=== PATIENT | male | born 1975 | race Caucasian/White ===

== ENCOUNTER → 2016-11-21 | Outpatient (CLI) | payer MEDICAID ==
--- NOTE | 2016-11-21 11:39 | RADIOLOGY REPORT PS360 ---
US ABD(COMPLETE-MULTI ORGANS HISTORY: POSITIVE HCV ORDERING PHYSICIAN: KTAE TORRES APRN PATIENT AGE: 41 years COMPARISON: None FINDINGS: PANCREAS:Unremarkable. No obvious mass or abnormal fluid collection. No ductal dilatation LIVER:No focal liver lesions demonstrated. Homogeneous echogenicity. No intrahepatic biliary ductal dilatation evident. Hepatopedal flow present within the portal vein. Portal vein is upper normal at 13 mm RIGHT KIDNEY:Unremarkable. Normal size and echogenicity. No hydronephrosis LEFT KIDNEY:Unremarkable. No hydronephrosis. Normal size and echogenicity. GALLBLADDER:No gallstones, gallbladder wall thickening, pericholecystic fluid, or biliary dilatation. There is increased echogenicity in the gallbladder fossa which may be related to prominent periportal fat and could be confirmed with CT. Common bile duct is normal at 4 mm AORTA:No evidence of aneurysmal dilatation. SPLEEN:Unremarkable. Normal size and echogenicity ASCITES:None demonstrated. IMPRESSION: 1. Unremarkable appearing liver. 2. Hepatopedal flow within the portal vein with portal vein upper limits of normal in size. 3. Increased echogenicity within the gallbladder fossa possibly related to periportal fat and could be confirmed with CT if clinically warranted. No gallstones or biliary dilatation
== END ==
LOC: RAD 08:00
DX: R76.8 Other specified abnormal immunological findings in serum (principal)

== ENCOUNTER 2017-03-13 14:08 | Emergency (ER) | payer MEDICAID ==
[~2017-03-13] VITALS: Ht 185.4 cm; Wt 78.5 kg
[2017-03-13] MEDS ORDERED: PANTOPRAZOLE SO40 M1 PO (14:16)
[2017-03-13] MEDS ORDERED: MONTELUKAST SOD10 MG PO (14:16)
[2017-03-13] MEDS ORDERED: FLONASE 50 MCG16 GM (14:16)
[2017-03-13] MEDS ORDERED: KEFLEX 500MG.500 MG PO (14:17)
--- OUTSIDE RECORDS SUMMARY | 2017-03-13 14:30 | External Medical Summary Rpt ---
Author Author , Organization [employer] Address Unknown Phone Unavailable Care Team Providers Care Golf Teacher Name Role Phone [facility], Unavailable Unavailable [facility], Unavailable Unavailable [facility] SEGURA, SEGURA Unavailable Unavailable WADE CRUZITO, Unavailable Unavailable WADE CRUZITO CIARA CHR, Unavailable Unavailable CIARA CHR FRYMAN, FRYMAN Unavailable Unavailable FRYMAN EUG, FRYMAN Unavailable Unavailable EUG HELENA ATUL, HELENA Unavailable Unavailable ATUL ROB ASPEN, ROB Unavailable Unavailable ASP[facility] Un[facility] Un[facility], [facility], Unavailable Unavailable [facility] BRIGITTE MARCIO, BRIGITTE MARCIO Unavailable Unavailable [facility] Un[facility] RICHARD LUZ, RICHARD LUZ Unavailable Unavailable [facility] NURSE Unavailable Unavailable PRACTITIONER GR, [facility] NURSE PRACTITIONER GR PATO-NATALIIA, Unavailable Unavailable [facility] Un[facility], [facility] FAUST, FAUST Unavailable Unavailable NAYA JAM, NAYA JAM Unavailable Unavailable KEN LUZ, KEN Unavailable Unavailable LUZ KEN LUZ, KEN Unavailable Unavailable LUZ LUKINS CRUZITO, LUKINS Unavailable Unavailable CRUZITO PRAVEENA GRISSOM Unavailable Unavailable PRAVEENA GRISSOM Unavailable Unavailable DOUG BARDOUG Unavailable Unavailable BAR RICE YVO, RICE YVO Unavailable Unavailable [facility] Purpose Continuity of Care Document - 06-03-2014 through 2016 Problems Code Diagnosis DOS Provider Status J309 ALLERGIC 01-21-2017 [facility] RHINITIS PHYSICIANS UNSPECIFIED GROUP J320 CHRONIC 01-21-2017 [facility] MAXILLARY PHYSICIANS SINUSITIS GROUP J342 DEVIATED 01-21-2017 [facility] NASAL PHYSICIANS SEPTUM GROUP L0291 CUTANEOUS 01-09-2017 [facility] ABSCESS PHYSICIANS UNSPECIFIED GROUP R51 HEADACHE 01-09-2017 [facility] B1920 UNS VIRAL 11-21-2016 [facility] HEPATITIS C MEDICAL WITHOUT IMAGING ASS HEPATIC COMA R768 OTH SPEC 11-21-2016 [facility] IMMUNOLOGIC INC AL FIND IN SERUM H5213 MYOPIA 08-09-2016 [facility] BILATERAL M549 DORSALGIA 05-01-2016 [facility] UNSPECIFIED PHYSICIANS GROUP R946 ABNORMAL 05-01-2016 [facility] RESULTS OF PHYSICIANS THYROID GROUP FUNCTION STUDIES M542 CERVICALGIA 04-03-2016 [facility] M545 LOW BACK 04-03-2016 [facility] PAIN [facility] M95919 MIGRAINE 04-02-2016 [facility] UNS NOT PHYSICIANS INTRACT W/O GROUP STATUS MIGRAINOSUS J3489 OTHER 03-20-2016 [facility] SPECIFIED MEDICAL DISORDERS IMAGING ASS NOSE AND NASAL SINUSES K219 GASTRO-ESOP 03-20-2016 [facility] H REFLUX PHYSICIANS DISEASE GROUP WITHOUT ESOPHAGITIS S40171 PAIN IN 03-20-2016 [facility] LEFT HIP MEDICAL IMAGING ASS Z0000 ENCOUNTER 03-20-2016 [facility]ULT [facility] MED EXAM INC W/O ABNORMAL FIND G8929 OTHER 11-02-2015 [facility] CHRONIC PAIN K30 FUNCTIONAL 11-02-2015 [facility] DYSPEPSIA 41670 CHEST PAIN 07-28-2014 KEN LU[facility] UNSPECIFIED 46311 OTHER 07-06-2014 [facility] SYMPTOMS SERV INVOLVING FOUNDATION HEAD AND NECK 7937 NONSPC ABN 07-06-2014 [facility] FINDNG RAD SERV & OTH EXM FOUNDATION MUSCULSKELT L SYS E8810 ACCIDENTAL 07-06-2014 [facility] FALL FROM SERV LADDER FOUNDATION 14942 CLOSED 06-14-2014 K[facility] LU[facility] FRACTURE OF RIB, UNSPECIFIED E8849 OTHER 06-14-2014 [facility] LU[facility] ACCIDENTAL FALL FROM ONE LEVEL TO ANOTHER 58857 LIVER LAC 06-07-2014 [facility] NURSE MINOR W/O PRACTITIONE MENTION OPN R GR WOUND IN CAV 06026 UNS SPLEEN 06-07-2014 [facility] NURSE INJURY W/O PRACTITIONE MENTION OPN R GR WOUND IN CAV 4928 OTHER 06-04-2014 [facility] EMPHYSEMA SERV FOUNDATION 55770 KYPHOSIS 06-04-2014 [facility] ACQUIRED SERV POSTURAL FOUNDATION 7384 ACQUIRED 06-04-2014 [facility] SPONDYLOLIS SERV THESIS FOUNDATION 38603 CLOSED 06-04-2014 [facility] FRACTURE OF SERV ONE RIB FOUNDATION E8889 UNSPECIFIED 06-04-2014 [facility] FALL SERV FOUNDATION V454 ARTHRODESIS 06-04-2014 [facility] STATUS SERV [facility]OUNDATION V714 OBSERVATION 06-04-2014 [facility] FOLLOWING SERV OTHER FOUNDATION ACCIDENT 7245 UNSPECIFIED 06-03-2014 [facility] BACKACHE [place] 75468 ABDOMINAL 06-03-2014 [facility] PAIN, LEFT [place] UPPER QUADRANT 8770 OPEN WOUND 06-03-2014 [facility] BUTTOCK SERV WITHOUT FOUNDATION MENTION COMPLICATIO N 9228 CONTUSION 06-03-2014 [facility] SITES OF INC TRUNK 49127 OTHER 06-03-2014 [facility] INJURY OF N EMERGENCY OTHER SITES PHYS OF TRUNK E882 ACCIDENTAL 06-03-2014 [place] [facility] F[facility] SERV FROM/OUT FOUNDATION BUILDING/OT H STRUCTURE E8888 OTHER FALL 06-03-2014 [facility] T07 UNSPECIFIED MULTIPLE INJURIES Medications Na ND Rx Da Fi Fi Am Da Di Ph RX Ph St me C No te ll ll ou ys ag ar # ys at rm s nt no ma ic us Or Da si cy ia de te s n re d MO 27 05 06 30 30 00 CA Ac NT 24 -1 -0 .0 00 RL ti EL 10 5- 9- 00 00 IS ve UK 01 20 20 77 LE 89 17 [address] DON DOWLING D S 10 MG TA BL ET FL 00 05 06 16 30 00 CA Ac UT 05 -1 -0 .0 00 RL ti IC 43 5- 9- 00 00 IS ve 27 20 20 77 LE ON 09 17 [address] EMILIE DOWLING OP S 50 MC G SP RA Y THRASHER 53 05 05 20 10 00 CA Ac LF 74 -0 -2 .0 00 RL ti AM 60 3- 6- 00 00 IS ve ET 27 20 20 77 LE HO 20 17 [address] SAWYER DOWLING LE S -T MP DS TA BL ET CE 00 05 05 20 10 00 CA Ac PH 09 -0 -2 .0 00 RL ti AL 33 3- 6- 00 00 IS ve EX 14 20 20 77 LE IN 70 17 [address] 50 UG 0 S MG CA PS UL E PA 00 05 05 30 30 00 CA Ac NT 37 -0 -2 .0 00 RL ti OP 86 3- 6- 00 00 IS ve RA 68 20 20 77 LE ZO 97 17 [address] NITESH Blank D 40 MG TA B Procedures Procedure DOS Code Location Performer Comment SUSCEPTIB 54394 [facility] LTY STDY 7 [facility] ANTIMICRB INC INC IAL MICRO/AGA R DILUTJ INCISION 59107 [facility] FRYMAN & 7 PHYSICIAN DRAINAGE S GROUP ABSCESS SIMPLE/SI NGLE CUL BACT 39633 [facility] XCPT 7 [facility] URINE INC INC BLOOD/STO OL AEROBIC ISOL CUL BACT 96599 [facility] MANUEL FRY AEROBIC 7 [facility] [place]DL [place] [address] [facility] MANUEL FRY ABDOMINAL 7 [facility] REAL INC INC TIME W/[place] [address] LUZ SEGURA ABDOMINAL 7 MEDICAL REAL IMAGING TIME ASS W/IMAGE LIMITED DETERMINA 72597 PRAVEENA GRISSOM [facility] 6 REFRACTIV E STATE OPHTH 97501 PRAVEENA [facility] 6 XM&EVAL COMPRE NEW PT 1/> VST PHYSICAL 36825 [facility] FR[facility] THERAPY 6 [facility] EVALUATIO INC INC N DRUG TST G0477 [facility] FR[facility] PRESUMP;C 6 [facility] PBL BEING INC INC READ DC OPT OBV ONLY COMPREHEN 13350 [facility] FR[facility] SIVE 6 [facility] METABOLIC INC INC PANEL HEPATITIS 58147 [facility] Lam CORE 6 [facility] ANTIBODY INC INC HBCAB TOTAL HEPATITIS 59947 [facility] Lam SURF 6 [facility] [address] [facility] FRY HEPATITIS 6 [facility] B INC INC SURFACE ANTIGEN LIPID 48875 [facility] FR[facility] PANEL 6 [facility] INC INC HEPATITIS 44582 [facility] FRY C 6 [facility] ANTIBODY INC INC RADEX 48666 [facility] SINUSES 6 MEDICAL CRUZITO PARANASAL IMAGING COMPL ASS MINIMUM 3 VIEWS HEMOGLOBI 34035 [facility] FRY N 6 [facility] GLYCOSYLA INC INC ARTURO A1C BLOOD 21286 [facility] FR[facility] COUNT 6 [facility] COMPLETE INC INC AUTO&AUTO DIFRNTL WBC RADEX HIP 45276 [facility] WADE 6 MEDICAL CRUZITO UNILATERA IMAGING L WITH ASS PELVIS 2-3 VIEWS HEPATITIS 44181 [facility] FRY A 6 [facility] ANTIBODY INC INC HAAB COLLECTIO 50372 [facility] FR[facility] N VENOUS 6 [facility] H[facility] [place] [address] [facility] FR[facility] THYROID 6 [facility] STIMULATI [place] [address] [facility] FRY THYROXINE 6 [facility] TOTAL INC INC HOSPITAL 96845 [facility] RICE YVO DISCHARGE 4 NURSE DAY PRACTITIO MANAGEMEN NER GR T 30 MIN/< SBSQ 97104 [facility] 4 MEDICAL ASPEN CARE/DAY SERV 15 FOUNDATIO MINUTES N SBSQ 25099 [facility] 4 MEDICAL ASPEN CARE/[place] [address] [place] [address] MEGHNA LUKINS ANGIOGRAP 4 MEDICAL CRUZITO HY NECK SERV W/CONTRAS FOUNDAT[place] T/[place] [address] [place] ANGIOGRAP 4 MEDICAL BAR HY CHEST SERV W/CONTRAS FOUNDAT[place] T/[place] [address] [place] CERVICAL 4 MEDICAL BAR SPINE W/[place] [address] [place] ABDOMEN & 4 MEDICAL BAR PELVIS SERV [place] [address] [place] ANGIOGRAP 4 MEDICAL CRUZITO HY HEAD SERV W/CONTRAS FOUNDATIO T/NONCONT N [facility] [place] LUMBAR 14857 [place] SPINE 4 MEDICAL BAR W/O SERV CONTRAST FOUNDATIO MATERIAL N RADIOLOGI 14634 [place] NAYA JAM C 4 MEDICAL EXAMINATI SERV ON PELVIS FOUNDATIO 1/2 N VIEWS RADIOLOGI 72968 [place] NAYA JAM C 4 MEDICAL EXAMINATI SERV ON CHEST FOUNDATIO SINGLE N VIEW FRONTAL RADEX 84984 [place] RICHARD LUZ SPINE 4 MEDICAL CERVICAL SERV 2 [address] [place] [address] [place] [facility] THORACIC 4 MEDICAL BAR SPINE W/O SERV CONTRAST FOUNDATIO MATERIAL N US CHEST 50859 [place] BRIGGS MARCIO REAL TIME 4 MEDICAL W/IMAGE SERV DOCUMENTA FOUNDATIO TION N THROMBOPL 36006 [facility] FRY ASTIN 4 [facility] TIME INC INC PARTIAL PLASMA/WH OLE BLOOD CRITICAL 56618 [facility] 4 EDER ATUL ILL/INJUR EMERGENCY ED PHYS PATIENT INIT 30-74 MIN RADIOLOGI 65522 [facility] FRY C 4 [facility] EXAMINATI INC INC ON CHEST SINGLE VIEW FRONTAL GLUC BLD 23115 [facility] GARYON GLUC MNTR 4 [facility] DEV INC INC CLEARED FDA SPEC HOME USE BLOOD 88368 [facility] FRY COUNT 4 [facility] COMPLETE INC INC AUTO&AUTO DIFRNTL WBC COMPREHEN 20836 [facility] SIVE 4 [facility] [place] [address] [place] MARC[place] ABDOMINAL 4 MEDICAL REAL SERV TIME FOUNDATIO W/IMAGE N LIMITED AMB A0431 [facility] AIR SERVICE 4 METHODS METHODS CONVNTION [facility] AIR SRVC TRANSPORT [address] ECHO 55822 [place] BRIGGS MARC[place] TRANSTHOR 4 MEDICAL C R-T 2D SERV W/WO FOUNDATIO M-MODE N REC F-UP/LMTD THERAPEUT 72340 [facility] FR[facility] IC 4 [facility] INJECTION INC INC IV PUSH EACH NEW DRUG THER 74026 [facility] FRY PROPH/DX 4 [facility] NJX IV INC INC PUSH SINGLE/1S T SBST/DRUG Encounters Encounter Start End Date Code Location Performer Type Date OFFICE 93857 [facility] OUTPATIEN 7 7 PHYSICIAN T NEW 20 S GROUP MINUTES [facility] 7 [facility] OUTPATIEN INC T OFFICE 65846 [facility] OUTPATIEN 7 7 PHYSICIAN T VISIT S GROUP 15 MINUTES [facility]OSPITAL [facility] - 7 7 [facility] OUTPATIEN INC T OFFICE 24997 [facility] XAVI OUTPATIEN 7 7 NURSE NS T VISIT PRACTITIO 15 NER GR MINUTES OFFICE 09146 [facility] HELENA OUTPATIEN 6 6 PHYSICIAN ATUL T VISIT S GROUP 15 MINUTES [facility]OSPITAL [facility] - 6 6 [facility] OUTPATIEN INC T OFFICE 03987 [facility] FRYMAN OUTPATIEN 6 6 PHYSICIAN EUG T VISIT S GROUP 15 MINUTES HOSPITAL [facility] - 6 6 [facility] OUTPATIEN INC T OFFICE 04707 [facility] HELENA OUTPATIEN 6 6 PHYSICIAN ATUL T NEW 20 S GROUP MINUTES OFFICE 93309 [facility] KEN OUTPATIEN 6 6 LUZ LUZ T VISIT 25 MINUTES OFFICE 00175 K[facility] KEN OUTPATIEN 4 4 LUZ LUZ T VISIT 15 MINUTES OFFICE 54311 [facility] URBINA OUTPATIEN 4 4 MEDICAL CHR T NEW 20 SERV MINUTES FOUNDATIO N OFFICE 15941 K[facility] KEN OUTPATIEN 4 4 LUZ LUZ T NEW 45 MINUTES HOSPITAL [facility] - 4 4 [facility] OUTPATIEN INC T EMERGENCY 43219 [facility] BRIGGS MARCIO DEPT 4 4 MEDICAL VISIT SERV HIGH FOUNDATIO SEVERITY& N THREAT FUNJ
--- OUTSIDE RECORDS SUMMARY | 2017-03-13 14:30 | External Medical Summary Rpt ---
Author Author , Organization [employer] Address Unknown Phone Unavailable Care Team Providers Care Account Manager Trainee Name Role Phone [facility], Unavailable [...] Unavailable Unavailable INC, [facility], Unavailable Unavailable [facility] BRIGITTE MARCIO, BRIGITTE MARCIO Unavailable [...] Diagnosis DOS Provider Status J309 ALLERGIC 01-21-2017 [facility] RHINITIS PHYSICIANS UNSPECIFIED GROUP J320 CHRONIC 01-21-2017 [facility] MAXILLARY PHYSICIANS SINUSITIS GROUP J342 DEVIATED 01-21-2017 [facility] NASAL PHYSICIANS SEPTUM GROUP L0291 CUTANEOUS 01-09-2017 [facility] ABSCESS PHYSICIANS UNSPECIFIED GROUP R51 HEADACHE 01-09-2017 [facility] PHYSICIANS GROUP B1920 UNS VIRAL 11-21-2016 [facility] HEPATITIS C MEDICAL WITHOUT IMAGING ASS HEPATIC COMA R768 OTH SPEC 11-21-2016 [facility] ABNORMAL [facility] IMMUNOLOGIC INC AL FIND IN SERUM H5213 MYOPIA 08-09-2016 [facility] BILATERAL M549 DORSALGIA 05-01-2016 [facility] UNSPECIFIED PHYSICIANS GROUP R946 ABNORMAL 05-01-2016 [facility] RESULTS OF PHYSICIANS THYROID GROUP FUNCTION STUDIES M542 CERVICALGIA 04-03-2016 [facility] M545 LOW BACK 04-03-2016 [facility] PAIN [facility] INC J61814 MIGRAINE 04-02-2016 [facility] UNS NOT PHYSICIANS INTRACT W/O GROUP STATUS MIGRAINOSUS J3489 OTHER 03-20-2016 [facility] SPECIFIED MEDICAL DISORDERS IMAGING ASS NOSE AND NASAL SINUSES K219 GASTRO-ESOP 03-20-2016 [facility] H REFLUX PHYSICIANS DISEASE GROUP WITHOUT ESOPHAGITIS I97028 PAIN IN 03-20-2016 [facility] LEFT HIP MEDICAL IMAGING ASS Z0000 ENCOUNTER 03-20-2016 [facility] GEN ADULT [facility] MED EXAM INC W/O ABNORMAL FIND G8929 OTHER 11-02-2015 [facility] CHRONIC PAIN K30 FUNCTIONAL 11-02-2015 [facility] DYSPEPSIA 99296 CHEST PAIN 07-28-2014 KEN LU[facility] UNSPECIFIED 43566 OTHER 07-06-2014 [place] [facility] SYMPTOMS SERV INVOLVING FOUNDATION HEAD AND NECK 7937 NONSPC ABN 07-06-2014 [facility] FINDNG RAD SERV & OTH EXM FOUNDATION MUSCULSKELT L SYS E8810 ACCIDENTAL 07-06-2014 [facility] FALL FROM SERV LADDER FOUNDATION 72787 CLOSED 06-14-2014 [facility] LU[facility] FRACTURE OF RIB, UNSPECIFIED E8849 OTHER 06-14-2014 KEN LUZ ACCIDENTAL FALL FROM ONE LEVEL TO ANOTHER 03115 LIVER LAC 06-07-2014 [facility] NURSE MINOR W/O PRACTITIONE MENTION OPN R GR WOUND IN CAV 03209 UNS SPLEEN 06-07-2014 [facility] NURSE INJURY W/O PRACTITIONE MENTION OPN R GR WOUND IN CAV 4928 OTHER 06-04-2014 [facility] EMPHYSEMA SERV FOUNDATION 34866 KYPHOSIS 06-04-2014 [facility] ACQUIRED SERV POSTURAL [facility]OUNDATION 7384 ACQUIRED 06-04-2014 [facility] SPONDYLOLIS SERV THESIS FOUNDATION 70452 CLOSED 06-04-2014 [facility] FRACTURE OF SERV ONE RIB FOUNDATION E8889 UNSPECIFIED 06-04-2014 [facility] FALL SERV FOUNDATION V454 ARTHRODESIS 06-04-2014 [facility] STATUS [facility] V714 OBSERVATION 06-04-2014 [facility] FOLLOWING SERV OTHER FOUNDATION ACCIDENT 7245 UNSPECIFIED 06-03-2014 [facility] BACKACHE [place] 42352 ABDOMINAL 06-03-2014 [facility] PAIN, LEFT [place] UPPER QUADRANT 8770 OPEN WOUND 06-03-2014 [facility] BUTTOCK SERV WITHOUT FOUNDATION MENTION COMPLICATIO N 9228 CONTUSION 06-03-2014 [facility] SITES OF INC TRUNK 74854 OTHER 06-03-2014 [facility] N EMERGENCY [...] Procedure DOS Code Location Performer Comment SUSCEPTIB 94517 [facility] FRY LTY STDY 7 [facility] ANTIMICRB INC INC IAL MICRO/AGA R DILUTJ INCISION 26259 [facility] FRYMAN & 7 PHYSICIAN DRAINAGE S GROUP ABSCESS SIMPLE/SI NGLE CUL BACT 95559 [facility] FR[facility] XCPT 7 [facility] URINE INC INC BLOOD/STO OL AEROBIC ISOL CUL BACT 65604 [facility]AJOSE MANUEL FRY AEROBIC 7 [facility] ADDL [place] [address] L[facility]ANDRAJOSE MANUEL FRY ABDOMINAL 7 [facility] REAL INC [place] TIME [place] [address] LUZ SEGURA ABDOMINAL 7 MEDICAL REAL IMAGING TIME ASS W/IMAGE LIMITED DETERMINA 01455 PR[facility]EENA GRISSOM [facility] 6 REFRACTIV E STATE OPHTH 38114 PRAV[facility]NA [facility] 6 XM&EVAL COMPRE NEW PT 1/> VST PHYSICAL 27888 [facility] FRY THERAPY 6 [facility] EVALUATIO INC INC N DRUG TST G0477 [facility] FRY PRESUMP;C 6 [facility] PBL BEING INC INC READ DC OPT OBV ONLY COMPREHEN 54530 [facility] FRY SIVE 6 [facility] METABOLIC INC INC PANEL HEPATITIS 07396 [facility] Lam CORE 6 [facility] ANTIBODY INC INC HBCAB TOTAL HEPATITIS 16100 [facility] Lam SURF 6 [facility] [address] [facility] FRY HEPATITIS 6 [facility] B INC INC SURFACE ANTIGEN LIPID 18413 [facility] FRY PANEL 6 [facility] INC INC HEPATITIS 75648 [facility] FRY C 6 [facility] ANTIBODY INC INC RADEX 34793 [facility] WADE SINUSES 6 MEDICAL CRUZITO PARANASAL IMAGING COMPL ASS MINIMUM 3 VIEWS HEMOGLOBI 42759 [facility] FRY N 6 [facility] GLYCOSYLA INC INC ARTURO A1C BLOOD 69294 [facility] FRY COUNT 6 [facility] COMPLETE INC INC AUTO&AUTO DIFRNTL WBC RADEX HIP 47183 [facility] WADE 6 MEDICAL CRUZITO UNILATERA IMAGING L WITH ASS PELVIS 2-3 VIEWS HEPATITIS 97326 [facility] FRY A 6 [facility] ANTIBODY INC INC HAAB COLLECTIO 34767 [facility] FRY N VENOUS 6 [facility] [place] [address] [facility] FRY THYROID 6 [facility] STIMULATI [place] [address] [facility] FRY THYROXINE 6 [facility] H[facility] TOTAL INC INC HOSPITAL 23655 KMSF RICE YVO DISCHARGE 4 NURSE DAY PRACTITIO MANAGEMEN NER GR T 30 MIN/< SBSQ 15898 [facility] 4 MEDICAL ASPEN CARE/DAY SERV 15 FOUNDATIO MINUTES N SBSQ 70265 [facility] 4 MEDICAL ASPEN CARE/DAY SERV [address] [place] [address] MEGHNA LUKINS ANGIOGRAP 4 MEDICAL CRUZITO HY NECK SERV W/CONTRAS FOUNDAT[place] T/[place] [address] [place] ANGIOGRAP 4 MEDICAL BAR HY CHEST SERV W/CONTRAS [place] [address] [place] CERVICAL 4 MEDICAL BAR SPINE W/[place] [address] [place] ABDOMEN & 4 MEDICAL BAR PELVIS SERV W/[place] [address] [place] ANGIOGRAP 4 MEDICAL CRUZITO HY HEAD SERV W/CONTRAS FOUNDATIO T/NONCONT N [facility]ST CT LUMBAR 51999 [place] SPINE 4 MEDICAL BAR W/O SERV CONTRAST FOUNDATIO MATERIAL N RADIOLOGI 74074 [place] [facility] JAM C 4 MEDICAL EXAMINATI SERV ON PELVIS FOUNDATIO 1/2 N VIEWS RADIOLOGI 02547 [place] [facility] JAM C 4 MEDICAL EXAMINATI SERV ON CHEST FOUNDATIO SINGLE N VIEW FRONTAL RADEX 31644 [place] R[place]ARD LUZ SPINE 4 MEDICAL CERVICAL SERV 2 [place] [address] [place] [facility] THORACIC 4 MEDICAL BAR SPINE W/O SERV CONTRAST FOUNDATIO MATERIAL N US CHEST 40491 [place] BRIGGS MARCIO REAL TIME 4 MEDICAL W/IMAGE SERV DOCUMENTA FOUNDATIO TION N THROMBOPL 20818 [facility] FRY ASTIN 4 [facility] TIME INC INC PARTIAL PLASMA/WH OLE BLOOD CRITICAL 80861 [facility] 4 EDER ATUL ILL/INJUR EMERGENCY ED PHYS PATIENT INIT 30-74 MIN RADIOLOGI 06687 [facility] FRY C 4 [facility] EXAMINATI INC INC ON CHEST SINGLE VIEW FRONTAL GLUC BLD 16087 L[facility] GARYON GLUC MNTR 4 [facility] DEV INC INC CLEARED FDA SPEC HOME USE BLOOD 98281 [facility] FRY COUNT 4 [facility] COMPLETE INC INC AUTO&AUTO DIFRNTL WBC COMPREHEN 51630 [facility] SIVE 4 [facility] [place] [address] [place] MARC[place] ABDOMINAL 4 MEDICAL REAL SERV TIME FOUNDATIO W/IMAGE N LIMITED AMB A0431 AIR AIR SERVICE 4 METHODS METHODS CONVNTION [facility] AIR SRVC TRANSPORT [address] ECHO 00839 [place] [facility] MARC[place] TRANSTHOR 4 MEDICAL C R-T 2D SERV W/WO FOUNDATIO M-MODE N REC F-UP/LMTD THERAPEUT 41893 [facility] FRY IC 4 [facility] INJECTION INC INC IV PUSH EACH NEW DRUG THER 61409 [facility] FRY PROPH/DX 4 [facility] NJX IV INC INC PUSH SINGLE/1S T SBST/DRUG Encounters Encounter Start End Date Code Location Performer Type Date OFFICE 40803 [facility] OUTPAT[facility] 7 7 PHYSICIAN T NEW 20 S GROUP MINUTES [facility]OSP[facility] - 7 7 [facility] OUTPATIEN INC T OFFICE 38767 [facility] OUTPATIEN 7 7 PHYSICIAN T VISIT S GROUP 15 MINUTES [facility]OSPITAL [facility] - 7 7 [facility] OUTPATIEN INC T OFFICE 10291 [facility] XAVI OUTPATIEN 7 7 NURSE NS T VISIT PRACTITIO 15 NER GR MINUTES OFFICE 93782 [facility] HELENA OUTPATIEN 6 6 PHYSICIAN ATUL T VISIT S GROUP 15 MINUTES HOSPITAL [facility] - [facility] T OFFICE [id number] [facility] FRYMAN OUTPATIEN 6 6 PHYSICIAN EUG T VISIT S GROUP 15 MINUTES [facility] - 6 [facility] T OFFICE [id number] [facility]LENA OUTPATIEN 6 6 PHYSICIAN ATUL T NEW 20 S GROUP MINUTES OFFICE [id number] [facility] OUTPATIEN 6 6 LUZ LUZ T VISIT 25 MINUTES OFFICE [id number] [facility] OUTPATIEN 4 4 LUZ LUZ T VISIT 15 MINUTES OFFICE 67965 [facility] OUTPATI[facility] 4 4 MEDICAL CHR T NEW 20 SERV MINUTES FOUNDATIO N OFFICE [id number] [facility] OUTPATIEN 4 4 LUZ LUZ T NEW 45 MINUTES [facility] - 4 4 [facility] INC T EMERGENCY [id number] [facility]GS MARCIO DEPT 4 4 MEDICAL VISIT SERV HIGH FOUNDATIO SEVERITY& N THREAT FUNJ
--- OUTSIDE RECORDS SUMMARY | 2017-03-13 14:31 | External Medical Summary Rpt ---
Demographics Preferred Language Sinhala Marital Status Unknown Amish Affiliation Unknown Race Unknown Ethnic Group Unknown Author Author , Organization [employer] Address Unknown Phone Unavailable Purpose Continuity of Care Document - through 2016 Immunization No patient found.
--- OUTSIDE RECORDS SUMMARY | 2017-03-13 14:31 | External Medical Summary Rpt ---
Demographics Preferred Language Kyrgyz Marital Status Unknown Restoration Affiliation Unknown Race Unknown Ethnic Group Unknown Author Author , Organization [employer] Address Unknown Phone Unavailable Purpose Continuity of Care Document - through 2016 Immunization No patient found.
--- OUTSIDE RECORDS SUMMARY | 2017-03-13 14:31 | External Medical Summary Rpt ---
Author Author MARYAM Lai, MARYAM Lai Organization [employer] Address Unknown Phone Unavailable
--- OUTSIDE RECORDS SUMMARY | 2017-03-13 14:31 | External Medical Summary Rpt ---
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 Name Role Phone [facility] [place], Unavailable Unavailable [facility] [place] [facility] [place], Unavailable Unavailable [facility] [place] SEGURA, SEGURA Unavailable Unavailable WADE CRUZITO, Unavailable Unavailable WADE CRUZITO CIARA CHR, Unavailable Unavailable CIARA CHR FRYMAN, FRYMAN Unavailable Unavailable FRYMAN EUG, FRYMAN Unavailable Unavailable EUG HELENA ATUL, HELENA Unavailable Unavailable ATUL ROB ASPEN, ROB Unavailable Unavailable [facility] Un[facility] Unavailable INC, [facility], Unavailable Unavailable [facility] BRIGGS MARCIO, BRIGITTE MARCIO Unavailable Unavailable [facility] Unavailable Unavailable [facility], [facility] RICHARD LUZ, RICHARD LUZ Unavailable Unavailable [facility] NURSE Unavailable Unavailable PRACTITIONER GR, [facility] NURSE PRACTITIONER GR [facility]WILL[facility], Unavailable Unavailable [facility], [facility] FAUST, FAUST Unavailable Unavailable NAYA JAM, NAYA JAM Unavailable Unavailable KEN LUZ, KEN Unavailable Unavailable LUZ KEN LUZ, KEN Unavailable Unavailable LUZ LUKINS CRUZITO, LUKINS Unavailable Unavailable CRUZITO PRAVEENA GRISSOM Unavailable Unavailable PRAVEENA GRISSOM Unavailable Unavailable PAWGEORGETTE BAR, DOUG Unavailable Unavailable BAR RICE YVO, RICE YVO Unavailable Unavailable [facility] Purpose Continuity of Care Document - 06-03-2014 through 2016 Problems Code Diagnosis DOS Provider Status J309 ALLERGIC 01-21-2017 [facility] RHINITIS PHYSICIANS UNSPECIFIED GROUP J320 CHRONIC 01-21-2017 [facility] MAXILLARY PHYSICIANS SINUSITIS GROUP J342 DEVIATED 01-21-2017 [facility] NASAL PHYSICIANS SEPTUM GROUP L0291 CUTANEOUS 01-09-2017 [facility] ABSCESS PHYSICIANS UNSPECIFIED GROUP R51 HEADACHE 01-09-2017 [facility]IANS GROUP B1920 UNS VIRAL 11-21-2016 [place] HEPATITIS C MEDICAL WITHOUT IMAGING ASS HEPATIC COMA R768 OTH SPEC 11-21-2016 [facility] IMMUNOLOGIC INC AL FIND IN SERUM H5213 MYOPIA 08-09-2016 PR[facility] BILATERAL M549 DORSALGIA 05-01-2016 [facility] UNSPECIFIED PHYSICIANS GROUP R946 ABNORMAL 05-01-2016 [facility] RESULTS OF PHYSICIANS THYROID GROUP FUNCTION STUDIES M542 CERVICALGIA 04-03-2016 [facility] M545 LOW BACK 04-03-2016 [facility] PAIN [facility] INC B67853 MIGRAINE 04-02-2016 [facility] UNS NOT PHYSICIANS INTRACT W/O GROUP STATUS MIGRAINOSUS J3489 OTHER 03-20-2016 [place] SPECIFIED MEDICAL DISORDERS IMAGING ASS NOSE AND NASAL SINUSES K219 GASTRO-ESOP 03-20-2016 [facility] H REFLUX PHYSICIANS DISEASE GROUP WITHOUT ESOPHAGITIS N76198 PAIN IN 03-20-2016 [place] LEFT HIP MEDICAL IMAGING ASS Z0000 ENCOUNTER 03-20-2016 [facility]ULT [facility] MED EXAM INC W/O ABNORMAL FIND G8929 OTHER 11-02-2015 KEN LUZ CHRONIC PAIN K30 FUNCTIONAL 11-02-2015 KEN LUZ DYSPEPSIA 74544 CHEST PAIN 07-28-2014 KEN LUZ UNSPECIFIED 94275 OTHER 07-06-2014 [facility] SYMPTOMS SERV INVOLVING FOUNDATION HEAD AND NECK 7937 NONSPC ABN 07-06-2014 [facility] FINDNG RAD SERV & OTH EXM FOUNDATION MUSCULSKELT L SYS E8810 ACCIDENTAL 07-06-2014 [facility] MEDICAL FALL FROM SERV LADDER FOUNDATION 71788 CLOSED 06-14-2014 KEN LUZ FRACTURE OF RIB, UNSPECIFIED E8849 OTHER 06-14-2014 KEN LUZ ACCIDENTAL FALL FROM ONE LEVEL TO ANOTHER 29159 LIVER LAC 06-07-2014 [facility] NURSE MINOR W/O PRACTITIONE MENTION OPN R GR WOUND IN CAV 46961 UNS SPLEEN 06-07-2014 S NURSE INJURY W/O PRACTITIONE MENTION OPN R GR WOUND IN CAV 4928 OTHER 06-04-2014 [facility]HYSE[facility] 83401 KYPHOSIS 06-04-2014 [facility] ACQUIRED SERV POSTURAL FOUNDATION 7384 ACQUIRED 06-04-2014 [facility] MED[facility] SPONDYLOLIS SERV THESIS FOUNDATION 34636 CLOSED 06-04-2014 [place] [facility] FRACTURE OF SERV ONE RIB FOUNDATION E8889 UNSPECIFIED 06-04-2014 [place] [facility] F[facility] V454 ARTHRODESIS 06-04-2014 [place] [facility] STATUS [facility] V714 OBSERVATION 06-04-2014 [facility] FOLLOWING SERV OTHER FOUNDATION ACCIDENT 7245 UNSPECIFIED 06-03-2014 [facility] BACKACHE [place] 59702 ABDOMINAL 06-03-2014 [facility] PAIN, LEFT [place] UPPER QUADRANT 8770 OPEN WOUND 06-03-2014 [facility] MEDICAL BUTTOCK SERV WITHOUT FOUNDATION MENTION COMPLICATIO N 9228 CONTUSION 06-03-2014 [facility] SITES OF INC TRUNK 64356 OTHER 06-03-2014 [facility] INJURY OF N EMERGENCY OTHER SITES PHYS OF TRUNK E882 ACCIDENTAL 06-03-2014 [facility] FALL SERV FROM/OUT FOUNDATION BUILDING/OT H STRUCTURE E8888 OTHER FALL 06-03-2014 [facility] N [facility] PH[facility] Medications Na ND Rx Da Fi Fi [...] -0 .0 00 RL ti EL 10 - 00 IS ve UK 01 20 20 77 LE 89 17 [address] DON DOWLING D S 10 MG TA BL ET FL 00 05 06 16 30 00 CA Ac UT 05 -1 -0 .0 00 RL ti IC 43 5 9 00 00 IS ve 27 20 20 [...] 17 [address] NITESH OCHOA S D DR 40 MG TA B Procedures Procedure DOS Code Location Performer Comment INCISION 34865 [facility] FRYMAN & 7 PHYSICIAN DRAINAGE S GROUP ABSCESS SIMPLE/SI NGLE SUSCEPTIB 16288 [facility] LTY STDY 7 [facility] ANTIMICRB INC INC IAL MICRO/AGA R DILUTJ CUL BACT 54015 [facility] XCPT 7 [facility] URINE INC INC BLOOD/STO OL AEROBIC ISOL CUL BACT 73843 [facility] AEROBIC 7 [facility] ADDL [place] [address] LUZ SEGURA ABDOMINAL 7 MEDICAL REAL IMAGING TIME ASS W/[place] [address] [facility] FR[facility] ABDOMINAL 7 [facility] REAL INC INC TIME W/IMAGE DOCUMENTA TION DETERMINA 45052 PRAVEENA PRAVEENA TION 6 REFRACTIV E STATE OPHTH 54647 [facility] 6 XM&EVAL COMPRE NEW PT 1/> VST PHYSICAL 84731 [facility] THERAPY 6 [facility] EVALUATIO INC INC N DRUG TST G0477 [facility] PRESUMP;C 6 [facility] PBL BEING INC INC READ DC OPT OBV ONLY COMPREHEN 43345 [facility] SIVE 6 [facility] METABOLIC INC INC PANEL HEPATITIS 30043 [facility] Lam CORE 6 [facility] ANTIBODY INC INC HBCAB TOTAL HEPATITIS 91167 [facility] Lam SURF 6 [facility] [address] [facility] FR[facility] HEPATITIS 6 [facility] B INC INC SURFACE ANTIGEN COLLECTIO 11611 [facility] FR[facility] N VENOUS 6 [facility] BLOOD INC INC VENIPUNCT URE HEPATITIS 16661 [facility] FRY A 6 [facility] [address] [facility] FR[facility] THYROID 6 [facility] STIMULATI INC INC NG HORMONE TSH HEMOGLOBI 40849 [facility] FRY N 6 [facility] GLYCOSYLA INC INC ARTURO A1C RADEX HIP 36684 [place] WADE 6 MEDICAL CRUZITO UNILATERA IMAGING L WITH ASS PELVIS 2-3 VIEWS HEPATITIS 41346 [facility] FR[facility] C 6 [facility] ANTIBODY INC INC BLOOD 93647 [facility] COUNT 6 [facility] COMPLETE INC INC AUTO&AUTO DIFRNTL WBC LIPID 75842 [facility] PANEL 6 [facility] RADEX 80052 LUZ WADE SINUSES 6 MEDICAL CRUZITO PARANASAL IMAGING COMPL ASS MINIMUM [address] [place] [address] [facility] GARYON THYROXINE 6 [facility] TOTAL INC INC HOSPITAL 03352 [facility] RICE YVO DISCHARGE 4 NURSE DAY PRACTITIO MANAGEMEN NER GR T 30 MIN/< SBSQ 41866 [facility] 4 MEDICAL ASPEN CARE/DAY SERV 15 FOUNDATIO MINUTES N SBSQ 23039 [facility] 4 MEDICAL ASPEN CARE/DAY [place] [address] [place] [address] [place] ANGIOGRAP 4 MEDICAL CRUZITO HY NECK SERV W/CONTRAS FOUNDAT[place] T/[place] [address] [place] ANGIOGRAP 4 MEDICAL BAR HY CHEST SERV W/CONTRAS FOUNDAT[place] T/[place] [address] [place] CERVICAL 4 MEDICAL BAR SPINE W/[place] [address] [place] ANGIOGRAP 4 MEDICAL CRUZITO HY HEAD SERV W/CONTRAS FOUNDATIO T/NONCONT N [place] LUMBAR 56[address] [place] SPINE 4 MEDICAL BAR W/O SERV CONTRAST FOUNDATIO MATERIAL N RADIOLOGI 93415 [place] NAYA JAM C 4 MEDICAL EXAMINATI SERV ON PELVIS FOUNDATIO 1/[address] [place] [address] [place] ABDOMEN & 4 MEDICAL BAR PELVIS SERV W/CONTRAS FOUNDATIO T N MATERIAL RADIOLOGI 66052 [place] NAYA JAM C 4 MEDICAL EXAMINATI SERV ON CHEST FOUNDATIO SINGLE N VIEW FRONTAL RADEX 68345 [place] RICHARD LUZ SPINE 4 MEDICAL CERVICAL SERV 2 [place] [address] [place] [address] [place] THORACIC 4 MEDICAL BAR SPINE W/O SERV CONTRAST FOUNDATIO MATERIAL N US CHEST 21961 [place] BRIGIT[place] BU[place] REAL TIME 4 MEDICAL W/IMAGE SERV DOCUMENTA FOUNDATIO TION N RADIOLOGI 95018 [facility] FRY C 4 [facility] EXAMINATI INC INC ON CHEST SINGLE VIEW FRONTAL THROMBOPL 85610 [facility] FRY ASTIN 4 [facility] TIME INC INC PARTIAL PLASMA/WH OLE BLOOD CRITICAL 22461 [facility] CARE 4 [facility] ILL/INJUR INC INC ED PATIENT INIT 30-74 MIN ECHO 67061 [place] BRIGITTE MARCIO TRANSTHOR 4 MEDICAL C R-T 2D SERV W/WO FOUNDATIO M-MODE N REC F-UP/LMTD THERAPEUT 25414 [facility] IC 4 [facility] INJECTION INC INC IV PUSH EACH NEW DRUG BLOOD 98651 [facility] FRY COUNT 4 [facility] COMPLETE INC INC AUTO&AUTO DIFRNTL WBC COMPREHEN 68515 [facility] FR[facility] SIVE 4 [facility] METABOLIC INC INC PANEL GLUC BLD 47811 [facility] FRY GLUC MNTR 4 [facility] DEV INC INC CLEARED FDA SPEC HOME USE AMB A0431 AIR AIR SERVICE 4 METHODS METHODS CONVNTION [facility] AIR SRVC TRANSPORT [address] [address] [place] BRIGITTE MARCIO ABDOMINAL 4 MEDICAL REAL SERV TIME FOUNDATIO W/IMAGE N LIMITED THER 22514 [facility] PROPH/DX 4 [facility] NJX IV INC INC PUSH SINGLE/1S T SBST/DRUG Encounters Encounter Start End Date Code Location Performer Type Date OFFICE 43681 [facility] FAUST OUTPATIEN 7 7 PHYSICIAN T NEW 20 S GROUP MINUTES OFFICE 80464 [facility] LYNN OUTPATIEN 7 7 PHYSICIAN T VISIT S GROUP 15 MINUTES [facility]OSPITAL [facility] - 7 7 [facility] OUTPATIEN INC T [facility]OSP[facility] - 7 7 [facility] OUTPATIEN INC T OFFICE 44959 [facility] XAVI OUTPATIEN 7 7 NURSE NS T VISIT PRACTITIO 15 NER GR MINUTES OFFICE 24836 [facility] HELENA OUTPATIEN 6 6 PHYSICIAN ATUL T VISIT S GROUP 15 MINUTES HOSPITAL [facility] - 6 6 [facility] OUTPATIEN INC T OFFICE 57322 [facility] FRYMAN OUTPATIEN 6 6 PHYSICIAN EUG T VISIT S GROUP 15 MINUTES OFFICE 70764 [facility] HELENA OUTPATIEN 6 6 PHYSICIAN ATUL T NEW 20 S GROUP MINUTES HOSPITAL [facility] - 6 6 [facility] OUTPATIEN INC T OFFICE 43670 KEN KEN OUTPATIEN 6 6 LUZ LUZ T VISIT 25 MINUTES OFFICE 55629 KEN KEN OUTPATIEN 4 4 LUZ LUZ T VISIT 15 MINUTES OFFICE 21843 [facility] URBINA OUTPATIEN 4 4 MEDICAL CHR T NEW 20 SERV MINUTES FOUNDATIO N OFFICE 87253 KEN KEN OUTPATIEN 4 4 LUZ LUZ T NEW 45 MINUTES HOSPITAL [facility] - 4 4 [facility] OUTPATIEN INC T EMERGENCY 18249 [facility] BRIGGS MARCIO DEPT 4 4 MEDICAL VISIT SERV HIGH FOUNDATIO SEVERITY& N THREAT FUNJ
--- OUTSIDE RECORDS SUMMARY | 2017-03-13 14:31 | External Medical Summary Rpt ---
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 Role Phone [facility] [place], Unavailable Unavailable [facility] [place] [facility] [place], Unavailable Unavailable [facility] [place] SEGURA, SEGURA Unavailable Unavailable WADE CRUZITO, Unavailable Unavailable WADE CRUIZTO CIARA CHR, Unavailable Unavailable CIARA CHR FRYMAN, FRYMAN Unavailable Unavailable FRYMAN EUG, FRYMAN Unavailable Unavailable EUG HELENA ATUL, HELENA Unavailable Unavailable ATUL ROB ASPEN, ROB Unavailable Unavailable [facility] Un[facility] Un[facility] INC, [facility], Unavailable Unavailable [facility] BRIGGS MARCIO, BRIGITTE MARCIO Unavailable Unavailable [facility] Unavailable Unavailable [facility], [facility] RICHARD LUZ, RICHARD LUZ [...] Diagnosis DOS Provider Status J309 ALLERGIC 01-21-2017 [facility] RHINITIS PHYSICIANS UNSPECIFIED GROUP J320 CHRONIC 01-21-2017 [facility] MAXILLARY PHYSICIANS SINUSITIS GROUP J342 DEVIATED 01-21-2017 [facility] NASAL PHYSICIANS SEPTUM GROUP L0291 CUTANEOUS 01-09-2017 [facility] ABSCESS PHYSICIANS UNSPECIFIED GROUP R51 HEADACHE 01-09-2017 [facility] PHYSICIANS GROUP B1920 UNS VIRAL 11-21-2016 [place] HEPATITIS C MEDICAL WITHOUT IMAGING ASS HEPATIC COMA R768 OTH SPEC 11-21-2016 [facility] IMMUNOLOGIC INC AL FIND IN SERUM H5213 MYOPIA 08-09-2016 PR[facility]EE[facility] BILATERAL M549 DORSALGIA 05-01-2016 [facility] UNSPECIFIED PHYSICIANS GROUP R946 ABNORMAL 05-01-2016 [facility] RESULTS OF PHYSICIANS THYROID GROUP FUNCTION STUDIES M542 CERVICALGIA 04-03-2016 [facility] INC M545 LOW BACK 04-03-2016 [facility] PAIN [facility] INC E08038 MIGRAINE 04-02-2016 [facility] UNS NOT PHYSICIANS INTRACT W/O GROUP STATUS MIGRAINOSUS J3489 OTHER 03-20-2016 [place] SPECIFIED MEDICAL DISORDERS IMAGING ASS NOSE AND NASAL SINUSES K219 GASTRO-ESOP 03-20-2016 [facility] H REFLUX PHYSICIANS DISEASE GROUP WITHOUT ESOPHAGITIS [id number] PAIN IN 03-20-2016 [place] LEFT HIP MEDICAL IMAGING ASS Z0000 ENCOUNTER 03-20-2016 [facility] GEN [facility]ULT [facility] MED EXAM INC W/O ABNORMAL FIND G8929 OTHER 11-02-2015 KEN LUZ CHRONIC PAIN K30 FUNCTIONAL 11-02-2015 KEN LUZ DYSPEPSIA 80213 CHEST PAIN 07-28-2014 KEN LUZ UNSPECIFIED 73544 OTHER 07-06-2014 [facility] MEDICAL SYMPTOMS SERV INVOLVING FOUNDATION HEAD AND NECK 7937 NONSPC ABN 07-06-2014 [facility] MEDICAL FINDNG RAD SERV & OTH EXM FOUNDATION MUSCULSKELT L SYS E8810 ACCIDENTAL 07-06-2014 [facility] MEDICAL FALL FROM SERV LADDER FOUNDATION 70090 CLOSED 06-14-2014 KEN LUZ FRACTURE OF RIB, UNSPECIFIED E8849 OTHER 06-14-2014 KEN LUZ ACCIDENTAL FALL FROM ONE LEVEL TO ANOTHER 33845 LIVER LAC 06-07-2014 [facility] NURSE MINOR W/O PRACTITIONE MENTION OPN R GR WOUND IN CAV 07801 UNS SPLEEN 06-07-2014 S NURSE INJURY W/O PRACTITIONE MENTION OPN R GR WOUND IN CAV 4928 OTHER 06-04-2014 [place] [facility] 29120 KYPHOSIS 06-04-2014 [facility] MEDICAL ACQUIRED SERV POSTURAL FOUNDATION 7384 ACQUIRED 06-04-2014 [facility] MEDICAL SPONDYLOLIS SERV THESIS FOUNDATION 41310 CLOSED 06-04-2014 [place] [facility] FRACTURE OF SERV ONE RIB FOUNDATION E8889 UNSPECIFIED 06-04-2014 [place] [facility] FALL [facility] V454 ARTHRODESIS 06-04-2014 [place] [facility] STATUS [facility] V714 OBSERVATION 06-04-2014 [facility] MEDICAL FOLLOWING SERV OTHER FOUNDATION ACCIDENT 7245 UNSPECIFIED 06-03-2014 [facility] BACKACHE [place] 14711 ABDOMINAL 06-03-2014 [facility] PAIN, LEFT [place] UPPER QUADRANT 8770 OPEN WOUND 06-03-2014 [facility] MEDICAL BUTTOCK SERV WITHOUT FOUNDATION MENTION COMPLICATIO N 9228 CONTUSION 06-03-2014 [facility]LE [facility] SITES OF INC TRUNK 28842 OTHER 06-03-2014 [facility] OF N EMERGENCY OTHER SITES PHYS OF TRUNK E882 ACCIDENTAL 06-03-2014 [facility] MEDICAL FALL SERV FROM/OUT FOUNDATION BUILDING/OT H [...] Procedure DOS Code Location Performer Comment INCISION 06236 [facility] FRYMAN & 7 PHYSICIAN DRAINAGE S GROUP ABSCESS SIMPLE/SI NGLE SUSCEPTIB 86075 [facility] FR[facility] LTY STDY 7 [facility] ANTIMICRB INC INC IAL MICRO/AGA R DILUTJ CUL BACT 77788 [facility] FR[facility] XCPT 7 [facility] URINE INC INC BLOOD/STO OL AEROBIC ISOL CUL BACT 55984 [facility] FRY AEROBIC 7 [facility] [place] [address] LUZ SEGURA ABDOMINAL 7 MEDICAL REAL IMAGING TIME ASS W/[place] [address] [facility] FRY ABDOMINAL 7 [facility] REAL INC INC TIME W/IMAGE DOCUMENTA TION DETERMINA 64693 PRAVEENA PRAVEENA TION 6 REFRACTIV E STATE OPHTH 88344 [facility] 6 XM&EVAL COMPRE NEW PT 1/> VST PHYSICAL 35208 [facility] FRY THERAPY 6 [facility] EVALUATIO INC INC N DRUG TST G0477 [facility] FRY PRESUMP;C 6 [facility] PBL BEING INC INC READ DC OPT OBV ONLY COMPREHEN 45798 [facility] FRY SIVE 6 [facility] METABOLIC INC INC PANEL HEPATITIS 07070 [facility] Lam CORE 6 [facility] ANTIBODY INC INC HBCAB TOTAL HEPATITIS 24602 [facility] Lam SURF 6 [facility] [place] [address] L[facility] FRY HEPATITIS 6 [facility] B INC INC SURFACE ANTIGEN COLLECTIO 24069 [facility] FRY N VENOUS 6 [facility] BLOOD INC INC VENIPUNCT URE HEPATITIS 53542 [facility] FRY A 6 [facility] [address] L[facility] FRY THYROID 6 [facility] STIMULATI INC INC NG HORMONE TSH HEMOGLOBI 26590 [facility] FRY N 6 [facility] GLYCOSYLA INC INC ARTURO A1C RADEX HIP 88568 [place] WADE 6 MEDICAL CRUZITO UNILATERA IMAGING L WITH ASS PELVIS 2-3 VIEWS HEPATITIS 07762 [facility] FRY C 6 [facility] ANTIBODY INC INC BLOOD 46956 [facility] FRY COUNT 6 [facility] COMPLETE INC INC AUTO&AUTO DIFRNTL WBC LIPID 04378 [facility] PANEL 6 [facility] INC RADEX 82384 LUZ WADE SINUSES 6 MEDICAL CRUZITO PARANASAL IMAGING COMPL ASS MINIMUM [address] [place] [address] L[facility] GARYON THYROXINE 6 [facility] TOTAL INC INC HOSPITAL 15327 KMS[facility] RICE YVO DISCHARGE 4 NURSE DAY PRACTITIO MANAGEMEN NER GR T 30 MIN/< SBSQ 90927 [facility] 4 MEDICAL ASPEN CARE/DAY SERV 15 FOUNDATIO MINUTES N SBSQ 71707 [facility] 4 MEDICAL ASPEN CARE/DAY SERV [address] [place] [address] [place] [facility]GIOGRAP 4 MEDICAL CRUZITO HY NECK SERV W/CONTRAS FOUNDAT[place] T/[place] [address] [place] ANGIOGRAP 4 MEDICAL BAR HY CHEST SERV W/CONTRAS [place] [address] [place] CERVICAL 4 MEDICAL BAR SPINE W/[place] [address] [place] ANGIOGRAP 4 MEDICAL CRUZITO HY HEAD SERV W/CONTRAS FOUNDATIO T/NONCONT N [place] LUMBAR 19188 [place] SPINE 4 MEDICAL BAR W/O SERV CONTRAST FOUNDATIO MATERIAL N RADIOLOGI 00352 [place] JAM C 4 MEDICAL EXAMINATI SERV ON PELVIS FOUNDATIO 1/[address] [place] [address] [place] ABDOMEN & 4 MEDICAL BAR PELVIS SERV W/CONTRAS FOUNDATIO T N MATERIAL RADIOLOGI 32789 [place] JAM C 4 MEDICAL EXAMINATI SERV ON CHEST FOUNDATIO SINGLE N VIEW FRONTAL RADEX 68349 [place] R[place]ARD LUZ SPINE 4 MEDICAL CERVICAL SERV 2 OR [address] [place] [address] [place] THORACIC 4 MEDICAL BAR SPINE W/O SERV CONTRAST FOUNDATIO MATERIAL N US CHEST 26160 [place] REAL TIME 4 MEDICAL W/IMAGE SERV DOCUMENTA FOUNDATIO TION N RADIOLOGI 34004 [facility] FRY C 4 [facility] EXAMINATI INC INC ON CHEST SINGLE VIEW FRONTAL THROMBOPL 50060 [facility] FRY ASTIN 4 [facility] TIME INC INC PARTIAL PLASMA/WH OLE BLOOD CRITICAL 78401 [facility] CARE 4 [facility] ILL/INJUR INC INC ED PATIENT INIT 30-74 MIN ECHO 64119 [place] BRIG[place]TE MARCIO TRANSTHOR 4 MEDICAL C R-T 2D SERV W/WO FOUNDATIO M-MODE N REC F-UP/LMTD THERAPEUT 92919 [facility] FRY IC 4 [facility] INJECTION INC INC IV PUSH EACH NEW DRUG BLOOD 71663 [facility] FRY COUNT 4 [facility] COMPLETE INC INC AUTO&AUTO DIFRNTL WBC COMPREHEN 92401 [facility] FR[facility] SIVE 4 [facility] METABOLIC INC INC PANEL GLUC BLD 60569 [facility] FRY GLUC MNTR 4 [facility] DEV INC INC CLEARED FDA SPEC HOME USE AMB A0431 AIR AIR SERVICE 4 METHODS METHODS CONVNTION [facility] AIR SRVC TRANSPORT [address] [address] [place] BRIG[place] MARC[place] ABDOMINAL 4 MEDICAL REAL SERV TIME FOUNDATIO W/IMAGE N LIMITED THER 11466 [facility] FRY PROPH/DX 4 [facility] NJX IV INC INC PUSH SINGLE/1S T SBST/DRUG Encounters Encounter Start End Date Code Location Performer Type Date OFFICE 56870 [facility] FAUST OUTPATIEN 7 7 PHYSICIAN T NEW 20 S GROUP MINUTES OFFICE 27841 [facility] LYNN OUTPATIEN 7 7 PHYSICIAN T VISIT S GROUP 15 MINUTES [facility] - 7 7 [facility] OUTPATIEN INC T [facility] - 7 7 [facility] OUTPATIEN INC T OFFICE 63078 [facility] XAVI OUTPATIEN 7 7 NURSE NS T VISIT PRACTITIO 15 NER GR MINUTES OFFICE 82506 [facility] HELENA OUTPATIEN 6 6 PHYSICIAN ATUL T VISIT S GROUP 15 MINUTES HOSPITAL [facility] - 6 6 [facility] OUTPATIEN INC T OFFICE 83742 [facility] FRYMAN OUTPATIEN 6 6 PHYSICIAN EUG T VISIT S GROUP 15 MINUTES OFFICE 29567 [facility] HELENA OUTPATIEN 6 6 PHYSICIAN ATUL T NEW 20 S GROUP MINUTES HOSPITAL [facility] - 6 6 [facility] OUTPATIEN INC T OFFICE 65914 KEN KEN OUTPATIEN 6 6 LUZ LUZ T VISIT 25 MINUTES OFFICE [id number] [facility] KEN OUTPATIEN 4 4 LUZ LUZ T VISIT 15 MINUTES OFFICE [id number] [facility] URBINA OUTPATIEN 4 4 MEDICAL CHR T NEW 20 SERV MINUTES FOUNDATIO N OFFICE [id number] K[facility] KEN OUTPATIEN 4 4 LUZ LUZ T NEW 45 MINUTES [facility] - 4 4 [facility] INC T EMERGENCY [id number] [facility] BRIGGS MARCIO DEPT 4 4 MEDICAL VISIT SERV HIGH FOUNDATIO SEVERITY& N THREAT FUNJ
--- NOTE | 2017-03-13 15:39 | Emergency Room Report ---
History of Present Illness Time Seen by MD Kline Presenting Problem in Triage Pt arrived:Walked Presenting Problem:PT STATES THREE BOILS UNDER RIGHT ARM THAT HAVE BEEN PRESENT FOR APPROX FIVE DAYS. 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 N Clinical Suspician of Infection? N Mental Status: 1 - Regular (Normal Baseline) Sepsis Risk:Possible Sepsis Risk Have you (or family members/close friends) recently traveled outside the [place]? N If Yes, where/when: Have you had exposure to infectious disease within the past month? N TB? Other? Specify: Comment Patient complains of 3 boils in his RIGHT axillary area for 5 days. He has a history of the same thing in his LEFT axillary area in January, he says that Cody Aviles incised and drained them and packed them. Review of his records shows the culture was positive for staphylococcus aureus. He had some drainage from one of the boils last night. ALLERGIES Coded Allergies: No Known Allergies (03/13/17) Home Medications Reported Medications Pantoprazole Sodium 40 MG PO DAILY #30 Fluticasone Propionate (Flonase 50 Mcg Nasal [place]) 1 SPRAY NA DAILY #16 Montelukast Sodium 10 MG PO DAILY #30 CEPHALEXIN (Keflex 500MG Capsule) 500 MG PO BID #28 History Medical History General CAD? No Angina: No VA: No Hypertension? No Hyperlipidemia? No CHF? No DVT? No PE? No COPD? No Asthma? No Anemia? No GERD? No Gastric ulcers? No GI Bleed? No Hernia? Yes Thyroid Problems? No Hypothyroidism? No CVA? No Seizures? No Diabetes? No Renal Insuffiency? No End Stage Renal Disease? No UTI? No Stones? No BPH? No GB Disease: No Nephritic Syndrome? No Asplenia? No Hepatitis? No Sickle Cell Disease? No Arthritis? No Migraines? No Cataracts? No Glaucoma? No MRSA? No HIV? No TB? No Anxiety? No Depression? No Cancer? No More? No Immunization Hx DT/Tetanus 1-4 Years Ago Surgical Hx Previous Surgery?Y Hernia Repair WISDOM TEETH Social History Smoking Hx Smoker: Current Every Day Smoker Tobacco: Yes Type Cigarettes Alcohol Alcohol: No Review of Systems All Other Systems Reviewed and Negative Constitutional denies fever Skin see HPI Physical Exam Vital Signs Vital Signs Date Time Temp Pulse Resp B/P Pulse O2 O2 Flow FiO2 Ox Delivery Rate 03/13 1412 98.4 106 20 140/92 97 General Appearance normal appearance Respiratory Status No: respiratory distress. Cardiovascular regular rate/rhythm, normal peripheral pulses Neurologic alert, no motor/sensory deficits Skin 2.5 cm abscesses 3 in RIGHT axillary area. Erythema only over the abscess, no surrounding cellulitis. Medical Decision Making LABS/Meds/Orders Pt receiving controlled substance in ED? Yes [facility] was queried for this patient? No Reason not queried - emergent pt cond=no time Results/Orders Current Medication Orders Sig/Melissa Start time Last Medication Dose Route Stop Time Status Admin Lidocaine/Epinephrine 10 ML ONCE ONE 03/13 1545 DC 03/13 SC 03/13 1546 1609 Lidocaine/Epinephrine 0 .STK-MED ONE 03/13 1543 DC .ROUTE Orders Procedure Date/time Status CULTURE, WOUND 03/13 1610 Active Procedures Incision and Drainage Progress Incision/Drainage Performed by: ASHOK RICE Consent: Verbal consent obtained. Risks and benefits: risks, benefits and alternatives were discussed Consent given by: patient Patient identity confirmed: verbally with patient Type: abscess Location: RIGHT axilla Anesthesia: local infiltration Local anesthetic: lidocaine 1% with epinephrine Patient sedated: no Scalpel size: 11 Incision type: single straight Complexity: simple Drainage: purulent Drainage amount: moderate Wound treatment: probed for loculations. wound left open, all 3 abscesses were connected in the subcutaneous area Packin/4 inch 3 yuni Culture: Yes Patient tolerance: Patient tolerated the procedure well with no immediate complications Departure Departure Disposition DC Home or Self Care(routine) Clinical Impression Primary Impression: Cutaneous abscess Qualifiers: Site of cutaneous abscess: extremity Site of cutaneous abscess of extremity: upper extremity Laterality: right Qualified Code: L02.413 - Cutaneous abscess of right upper limb Condition STABLE Referrals Gem PARADA,Brayden Bowen (Family) Patient Instructions DI for Incision and Drainage of a Skin Abscess Additional Instructions Additional instructions for ABSCESS: Day one and two: Remove the bandage and shower the area, leaving the packing in place. Gently blot dry. Apply a bandage. Day three: Follow-up with primary care physician, clinic, or Urgent Treatment Center for packing removal and culture results. Return to the emergency department if increasing pain, swelling, redness, redstreaks or fever greater than 101 degrees. Prescriptions Current Visit Scripts SULFAMETHOXAZOLE W/TRIMETHOPRI (Bactrim Ds Tab) 1 TAB PO BID #20 TAB MUPIROCIN 2% (Bactroban Oint) 1 SARAH TP TID #1 TUBE apply a thin film to each axilla tid for 1 week HYDROCODONE/ACETAMINOPHEN ([place] 5-325 Tablet) 1 TAB PO Q6HP PRN pain #10 TAB ED Critical Care Critical Care No at 1610
[2017-03-13] MEDS ORDERED: BACTROBAN2% TP (16:11)
[2017-03-13] MEDS ORDERED: BACTRIM DS 8001 TA1 PO (16:11)
[2017-03-13] MEDS ORDERED: NORCO 325 MG-51 TAB PO (16:12)
[2017-03-13 16:17] VITALS: BP 140/92
== END 2017-03-13 16:18 | disposition home or self-care (01) ==
LOC: ER 14:08
PROC: 0H9BXZZ Drainage of Right Upper Arm Skin, External Approach (ICD-10-PCS; principal; 2017-03-13)
DX: L02.413 Cutaneous abscess of right upper limb (principal)

== ENCOUNTER 2017-05-01 10:42 | Day surgery (SDC) | payer MEDICAID ==
[~2017-05-01] VITALS: Ht 185.4 cm; Wt 78.0 kg
[~2017-05-01 10:42] MED LIST: BACTRIM DS 8001 TA1 PO; BACTROBAN2% TP; FLONASE 50 MCG16 GM; KEFLEX 500MG.500 MG PO; MONTELUKAST SOD10 MG PO; NORCO 325 MG-51 TAB PO; PANTOPRAZOLE SO40 M1 PO
--- NOTE | 2017-05-01 13:24 | Anesthesia Record ---
Anesthesia Record Part I Total IV fluids: 600 EBL (ml): 10 Urine Output: 0 B/P: 151/101 % SaO2: 98 Pulse: 105 Resps: 12 Temp: 97.1 Patient is: Awake, Stable Stable to PACU at: 1315 at 1324
--- NOTE | 2017-05-01 13:25 | Anesthesia Record ---
Anesthesia Record Part II Discharge time: 1345 Destination: Same day surgery PACU nurse assessment review? Yes Patient is: Awake, Stable Anesthesia complications? No at 1320
[2017-05-01 16:25] VITALS: BP 138/86
--- NOTE | 2017-05-02 09:35 | Operative Note ---
Other ENT Procedure Date of Procedure: 05/01/17 Time of Procedure: 1100 Procedure performed: 1. Nasal Septoplasty 2. Endoscopic sinus surgery Pre-op diagnosis: 1. Deviated nasal septum with 90% nasal airflow blockage 2. Chronic bilateral maxillary sinusitis Post-op diagnosis: same Surgeon: Alex No Anesthesia: general Pre-procedure antibiotics: Ancef 1 gm Pre-procedure steroid: Decadron 12 mg Description of procedure: With patient under general anesthesia the face was prepped and draped. The eyes were protected with Steri-Strips. The nose was decongested with topical cocaine and 5 mL of 2 percent lidocaine with epi were injected into the nasal antral rodarte and septum. There was a severe deviation of the nasal septum to the LEFT with 90 percent nasal airflow blockage. A LEFT hemitransfixion incision was made in the mucoperichondrial and mucoperiosteum was elevated from both sides of the nasal septum. A large deformity of the maxillary crest and vomer were removed. The perpendicular plate of the ethmoid was straightened. The quadrangular cartilage was trimmed anteriorly inferiorly and posteriorly. When that was done the septum could be realigned at the midline it was held there with transfixion and hemitransfixion chromic sutures. Using endoscopic sinus surgery technique, same instruments and scopes, a RIGHT intranasal maxillary antrostomy was done with removal of tissue. The RIGHT ostiomeatal complex was opened and the sinus was thoroughly irrigated until all of the returns were clear. Similarly using the same instruments and scopes a LEFT intranasal maxillary antrostomy was done. Mucosal thickening was removed and submitted. The ostiomeatal complex was opened , and the sinus was thoroughly irrigated until all of the returns were clear. Blood loss for all the procedure was less than 10 mL. Cortisporin ointment was placed in the nasal vestibules a drip pad dressing was applied and the patient was sent to recovery in good general condition. EBL (ml): 3 at 0946
== END 2017-05-01 15:30 | disposition home or self-care (01) ==
LOC: SDC 10:42
PROVIDERS: Otolaryngology
PROC: 099R0ZZ Drainage of Left Maxillary Sinus, Open Approach (ICD-10-PCS; 2017-05-01)
PROC: 099Q0ZZ Drainage of Right Maxillary Sinus, Open Approach (ICD-10-PCS; 2017-05-01)
PROC: 09BM0ZZ Excision of Nasal Septum, Open Approach (ICD-10-PCS; principal; 2017-05-01 12:00)
DX: J34.2 Deviated nasal septum (principal); J32.0 Chronic maxillary sinusitis
CPT/HCPCS: J0330; J2405

== ENCOUNTER → 2017-07-17 | Outpatient (CLI) | payer MEDICAID ==
--- NOTE | 2017-07-17 15:30 | RADIOLOGY REPORT PS360 ---
ELBOW-RT-3 VIEWS HISTORY: RT ELBOW PAIN ORDERING PHYSICIAN: Cody Aviles APRN PATIENT AGE: 42 years COMPARISON: None FINDINGS: BONY STRUCTURES: No fracture or dislocation. No lytic or blastic change. Normal mineralization. SOFT TISSUES: Unremarkable. No radio opaque foreign bodies. No displaced fat pad. JOINT SPACE: Well-preserved. No significant arthritic changes evident. IMPRESSION: Negative right elbow.
== END ==
LOC: RAD 15:09
DX: M25.521 Pain in right elbow (principal)